=== PATIENT | female | born 1955 | race Caucasian/White ===

== ENCOUNTER 2017-06-29 04:48 | Emergency (ER) | payer SELFPAY ==
[~2017-06-29] VITALS: Ht 162.6 cm; Wt 56.1 kg
[2017-06-29] MEDS ORDERED: PREDNISONE20 MG PO (05:30)
[2017-06-29] MEDS ORDERED: ATARAX,VISTARIL25 MG PO (05:30)
[2017-06-29] MEDS ORDERED: PEPCID40 MG PO (05:30)
[2017-06-29 05:52] VITALS: BP 120/74
== END 2017-06-29 05:55 | disposition home or self-care (01) ==
LOC: EME 04:48
DX: L30.9 Dermatitis, unspecified (principal); Z88.1 Allergy status to other antibiotic agents
CPT/HCPCS: 99281; 99284; J7512; Q0177